=== PATIENT | female | born 1960 | race Caucasian/White ===

== ENCOUNTER → 2017-02-15 | Outpatient (CLI) | payer BC ==
--- NOTE | 2017-02-15 19:10 | Diagnostic Imaging Report ---
EXAMINATION: Bilateral screening mammogram. INDICATION: Screening. COMPARISON: This study was compared to the prior exams of 09/15/2014 and 03/14/2012. At this time, there are no current complaints. The current study was also evaluated with a Computer Aided Detection (CAD) system. FINDINGS: There are scattered fibroglandular densities in both breasts which could obscure a lesion. Overall, there does not appear to have been any significant change when compared to the prior exam. No primary or secondary sign of malignancy is noted. IMPRESSION: 1. There is no evidence of malignancy. 2. The patient should have her annual bilateral screening mammogram on schedule in February of 2018. ACR BI-RADS Category 1: Negative. Result letter will be mailed to the patient. Note: At least 10% of breast cancer is not imaged by mammography. Dictated by: Dictated on workstation # [id number]
== END ==
LOC: RAD 15:19
PROVIDERS: ATTEND Obstetrics & Gynecology
DX: Z12.31 Encounter for screening mammogram for malignant neoplasm of breast (principal)
CPT/HCPCS: 77067

== ENCOUNTER → 2018-02-19 | Outpatient (CLI) | payer BC ==
--- NOTE | 2018-02-19 11:33 | Diagnostic Imaging Report ---
INDICATION: Routine screening. COMPARISON: 02/15/2017 and 09/15/2014. TECHNIQUE: Screening digital mammography was performed bilaterally with a Computer Aided Detection (CAD) system. FINDINGS: Scattered fibroglandular densities are identified bilaterally. Intraparenchymal lymph nodes in the upper outer aspects of both breasts are noted and stable. No spiculated mass or malignant appearing microcalcifications are seen. The axillae are unremarkable. IMPRESSION: No mammographic features suspicious for malignancy are identified. ACR BI-RADS Category 2: Benign findings. Result letter will be mailed to the patient. Note: At least 10% of breast cancer is not imaged by mammography. Dictated by: Dictated on workstation # [id number]
--- NOTE | 2018-02-21 16:36 | HISTORY AND PHYSICAL ---
DATE OF SERVICE: COLONOSCOPY H AND P HISTORY OF PRESENT ILLNESS: The patient is a 58-year-old white female referred by Dr. Mireille Pinto for screening colonoscopy. She reports that she feels well. She is deemed to be of average risk as she is not aware of any family history for colon cancer. She has had no bowel habit change. Denies bright red blood per rectum or melena. She currently is taking no prescription medication. Reports no weight change that she is aware of. 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 PAST SURGICAL HISTORY: Noncontributory. PHYSICAL EXAMINATION: GENERAL: Reveals a well-appearing white female in no acute distress. VITAL SIGNS: Her blood pressure was 110/80, weight is 156.6 pounds and stable, heart rate 72 and regular. NECK: Revealed no JVD, adenopathy or bruits. Ear canals are clear with normal TMs. CHEST: Clear to auscultation. CARDIOVASCULAR: Regular rate and rhythm without murmur, S3 or S4. ABDOMEN: Soft, supple without mass, organomegaly or tenderness. Bowel sounds are positive in all four quadrants. No bruits are noted. EXTREMITIES: Reveal no cyanosis, clubbing or edema. ASSESSMENT: The patient was set up for screening colonoscopy on 03/17. Prep instructions with the Suprep kit were given and questions were answered. Job ID: [id number] DocumentID: [id number] Dictated Date: 02/21/2018 16:21:10 Vamp Creaser Date: 02/21/2018 16:35:39 Dictated By: OZZY JAVIER MD
== END ==
LOC: RAD 10:29
PROVIDERS: ATTEND Obstetrics & Gynecology
DX: Z12.31 Encounter for screening mammogram for malignant neoplasm of breast (principal)
CPT/HCPCS: 77067

== ENCOUNTER 2018-03-12 08:45 | Outpatient (CLI) | payer BC ==
[~2018-03-12] VITALS: Ht 162.6 cm; Wt 70.3 kg
== END 2018-03-12 09:04 ==
LOC: PREOP 08:45
PROVIDERS: ATTEND Internal Medicine
DX: Z01.818 Encounter for other preprocedural examination (principal); Z12.11 Encounter for screening for malignant neoplasm of colon

== ENCOUNTER 2018-03-16 07:00 | Day surgery (SDC) | payer BC ==
[~2018-03-16] VITALS: Ht 162.6 cm; Wt 70.3 kg
[2018-03-16] MEDS ORDERED: D5 LR IV SOLUTION 1,000 ML IV ONE (07:04)
[2018-03-16] MEDS ORDERED: D5 LR IV SOLUTION 1,000 ML IV STA (07:28)
[2018-03-16] MEDS ORDERED: LIDOCAINE JELLY 2% (XYLOCAINE) 5 ML TUBE MM PRN (07:30)
[2018-03-16 07:32] VITALS: BP 134/86
--- NOTE | 2018-03-16 07:37 | Pre-Op Note & Conscious Sedat ---
Pre-Operative Progress Note H&P Reviewed The H&P was reviewed, patient examined and no changes noted. Date H&P Reviewed: March 16, 2018 Time H&P Reviewed: 07:37 Conscious Sedation Pre-Proced ASA Class: 1 Airway Mallampati Classification: ([place] appropriate class) I. II. III, IV Lungs Heart ASA score ASA 1: a normal healthy patient ASA 2: a patient with a mild systemic disease (mid diabetes, controlled hypertension, obesity ASA 3: a patient with a severe systemic disease that limits activity (angina , COPD, prior Myocardial infarction) ASA 4: a patient with an incapacitating disease that is a constant threat to life (CHF, renal failure) ASA 5: a moribund patient not expected to survive 24 hrs. (ruptured aneurysm) ASA 6: a declared brain patient whose organs are being harvested. For emergent operations, add the letter E after the classification Grade 2 Sedation Plan: Analgesia, Amnesia, Plan communicated to team members, Discussed options with patient/fam, Discussed risks with patient/fam Note The patient is an appropriate candidate to undergo the planned procedure, sedation, and anesthesia. The patient immediately re-assessed prior to indication. OZZY JAVIER MD March 16, 2018 07:37
[2018-03-16] MEDS ORDERED: MIDAZOLAM 2 MG/2 ML (VERSED) VIAL ONE ×2 (07:38→08:02)
[2018-03-16] MEDS ORDERED: LIDOCAINE JELLY 2% (XYLOCAINE) 5 ML TUBE ONE (07:38)
[2018-03-16] MEDS ORDERED: fentaNYL INJECTION 100 MCG/2 ML AMP ONE (07:38)
[2018-03-16] MEDS: fentaNYL INJECTION 100 MCG/2 ML AMP IVP PRN ×2 (07:55→08:10)
[2018-03-16] MEDS: MIDAZOLAM 2 MG/2 ML (VERSED) VIAL IVP PRN ×2 (08:00→08:16)
[2018-03-16 08:40] VITALS: BP 108/60
[2018-03-16 09:10] VITALS: BP 122/81
[2018-03-16 09:15] VITALS: BP 122/81
--- NOTE | 2018-03-17 02:33 | OPERATIVE REPORT ---
DATE OF SERVICE: COLONOSCOPY SUMMARY INDICATION FOR PROCEDURE: Screening colonoscopy. The patient was placed in the left lateral decubitus position. Prior to undergoing colonoscopy, digital rectal evaluation was performed. Anal sphincter tone was normal and the perianal reflexes intact. No abnormalities were noted on digital inspection of anal canal or distal rectal vault. The colonoscope was then inserted into the rectum and under direct visualization advanced to the cecum. The cecum was identified by identification of the ileocecal valve and cecal strap. Photographic documentation was obtained. Careful inspection was made as the colonoscope was withdrawn. The patient tolerated the procedure well. FINDINGS: There was no evidence for internal or external hemorrhoids and the rectum was unremarkable. Several small sigmoid diverticula were present without evidence for diverticulitis. The descending colon as well as the splenic flexure were unremarkable. Present in the proximal transverse colon was a diminutive 3 to 4 mm sessile polyp that was photographed and biopsied and ablated, submitted for histopathology with no significant blood loss. The hepatic flexure, ascending colon, and cecum were unremarkable. ASSESSMENT: One diminutive proximal transverse colonic polyp was noted, subsequently biopsied and ablated via hot forceps. As long as there are no surprises on histopathology report, we will abdicate screening colonoscopy in 10 years as the patient reports no family history for colon cancer. Mild diverticular disease confined to the sigmoid colon was present without evidence for diverticulitis. Job ID: [id number] DocumentID: [id number] Dictated Date: 03/16/2018 12:01:49 Outbound Sales Executive Date: 03/16/2018 20:12:58 Dictated By: OZZY JAVIER MD
--- NOTE | 2018-03-20 10:02 | HISTORY AND PHYSICAL ---
DATE OF SERVICE: 03/16/2018 COLONOSCOPY H AND P HISTORY OF PRESENT ILLNESS: The patient is a 58-year-old white female referred by Dr. Mireille Pinto for screening colonoscopy. She reports that she feels well. She is deemed to be of average risk as she is not aware of any family history for colon cancer. She has had no bowel habit change. Denies bright red blood per rectum or melena. She currently is taking no prescription medication. Reports no weight change that she is aware of. 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 PAST SURGICAL HISTORY: Noncontributory. PHYSICAL EXAMINATION: GENERAL: Reveals a well-appearing white female in no acute distress. VITAL SIGNS: Her blood pressure was 110/80, weight is 156.6 pounds and stable, heart rate 72 and regular. NECK: Revealed no JVD, adenopathy or bruits. Ear canals are clear with normal TMs. CHEST: Clear to auscultation. CARDIOVASCULAR: Regular rate and rhythm without murmur, S3 or S4. ABDOMEN: Soft, supple without mass, organomegaly or tenderness. Bowel sounds are positive in all four quadrants. No bruits are noted. EXTREMITIES: Reveal no cyanosis, clubbing or edema. ASSESSMENT: The patient was set up for screening colonoscopy on 03/17. Prep instructions with the Suprep kit were given and questions were answered. Job ID: [id number] DocumentID: [id number] Dictated Date: 02/21/2018 16:21:10 Graphics Artist Date: 02/21/2018 16:35:39 Dictated By: OZZY JAVIER MD <Dictated by OZZY JAVIER MD> <Electronically signed by OZZY JAVIER MD> 02/22/18 0818
== END 2018-03-16 09:15 | disposition home or self-care (01) ==
LOC: ENDO 07:00
PROVIDERS: ATTEND Internal Medicine
DX: Z12.11 Encounter for screening for malignant neoplasm of colon (principal); K63.5 Polyp of colon; K57.30 Diverticulosis of large intestine without perforation or abscess without bleeding
CPT/HCPCS: 88305

== ENCOUNTER → 2019-03-27 | Outpatient (CLI) | payer BC ==
--- NOTE | 2019-03-27 10:14 | Diagnostic Imaging Report ---
INDICATION: Routine screening. COMPARISON: 02/19/2018 and 02/15/2017. TECHNIQUE: 2D and 3D bilateral screening mammography was performed with CAD. FINDINGS: Scattered fibroglandular densities are identified bilaterally. Intraparenchymal lymph nodes in the upper outer aspects of both breasts are again noted. There is a density in the central right breast on the CC view slightly lateral to the nipple line. This most likely represents summation but additional views are recommended. No corresponding density on the MLO view is seen. The left breast is unremarkable. There are benign calcifications. The axillae are unremarkable. IMPRESSION: Right breast density. Additional views including spot compression and roll CC views are recommended for further evaluation. ACR BI-RADS Category 0: Incomplete. (Needs additional imaging evaluation). Result letter will be mailed to the patient. Note: At least 10% of breast cancer is not imaged by mammography. Dictated by: Dictated on workstation # [id number]
== END ==
LOC: RAD 07:43
PROVIDERS: ATTEND Obstetrics & Gynecology
DX: Z12.31 Encounter for screening mammogram for malignant neoplasm of breast (principal); R92.8 Other abnormal and inconclusive findings on diagnostic imaging of breast
CPT/HCPCS: 77067

== ENCOUNTER → 2019-04-01 | Outpatient (CLI) | payer BC ==
--- NOTE | 2019-04-01 13:48 | Diagnostic Imaging Report ---
Indication: Right breast density. Patient presents for additional views. Correlation is made with recent screening study from 03/27/2019. Unilateral right 2-D and 3-D diagnostic mammography was performed with CAD. This included rolled CC, spot compression CC and 90 degree lateral view. Additional views failed to demonstrate discrete mass. Area of density noted on recent screening study most likely represents superimposed tissue. No mass or suspicious calculations are seen. Impression: BI-RADS category 1 Additional views fail to demonstrate a discrete mass. The patient may return to routine annual screening mammography. ACR BI-RADS Category 1: Negative. Result letter will be mailed to the patient. Note: At least 10% of breast cancer is not imaged by mammography. Dictated by: Dictated on workstation # [id number]
== END ==
LOC: RAD 13:22
PROVIDERS: ATTEND Obstetrics & Gynecology
DX: R92.2 Inconclusive mammogram (principal)

== ENCOUNTER → 2021-05-26 | Outpatient (CLI) | payer BC ==
--- NOTE | 2021-05-26 14:16 | Diagnostic Imaging Report ---
INDICATION: Routine screening. Comparison is made with prior mammogram from 03/27/2019 and 02/19/2018. 2-D and 3-D bilateral screening mammography was performed with CAD. Scattered fibroglandular densities are identified bilaterally. Intraparenchymal lymph nodes in the upper and outer aspects of both breasts appears stable. No new mass or malignant appearing microcalcifications are seen. Axillae are unremarkable. IMPRESSION: BI-RADS Category 2 No mammographic features suspicious for malignancy are identified. ACR BI-RADS Category 2: Benign findings. Result letter will be mailed to the patient. Note: At least 10% of breast cancer is not imaged by mammography. Dictated by: Dictated on workstation # [id number]
== END ==
LOC: RAD 10:00
PROVIDERS: ATTEND Obstetrics & Gynecology
DX: Z12.31 Encounter for screening mammogram for malignant neoplasm of breast (principal); Z01.419 Encounter for gynecological examination (general) (routine) without abnormal findings
CPT/HCPCS: 77063; 77067

== ENCOUNTER → 2022-05-27 | Outpatient (CLI) | payer BC ==
--- NOTE | 2022-05-27 13:25 | Diagnostic Imaging Report ---
Indication: Routine screening. Comparison is made with prior mammograms 05/26/2021 and 03/27/2019. 2-D and 3-D bilateral screening mammography was performed with CAD. Both breast are heterogeneously dense, limiting the sensitivity of mammography. The parenchymal pattern is stable. No dominant mass or malignant-appearing microcalcifications are seen. Axillae are unremarkable. IMPRESSION: BI-RADS Category 1 No mammographic features suspicious for malignancy are identified. ACR BI-RADS Category 1: Negative. Result letter will be mailed to the patient. Note: At least 10% of breast cancer is not imaged by mammography. Dictated by: Dictated on workstation # [id number]
== END ==
LOC: RAD 08:32
PROVIDERS: ATTEND Obstetrics & Gynecology
DX: Z12.31 Encounter for screening mammogram for malignant neoplasm of breast (principal)
CPT/HCPCS: 77063; 77067

== ENCOUNTER → 2023-06-13 | Outpatient (CLI) | payer BC ==
--- NOTE | 2023-06-13 15:41 | Diagnostic Imaging Report ---
INDICATION: Routine screening. COMPARISON: 05/27/2022 and 05/26/2021. TECHNIQUE: 2D and 3D bilateral screening mammography was performed with CAD. FINDINGS: Scattered fibroglandular densities are identified bilaterally. The parenchymal pattern is stable. No mass or malignant-appearing microcalcifications are seen. The axillae are unremarkable. IMPRESSION: No mammographic features suspicious for malignancy are identified. ACR BI-RADS Category 1: Negative. Result letter will be mailed to the patient. Note: At least 10% of breast cancer is not imaged by mammography. Dictated by: Dictated on workstation # [id number]
== END ==
LOC: RAD 10:15
PROVIDERS: ATTEND Nurse Practitioner Women's Health
DX: Z12.31 Encounter for screening mammogram for malignant neoplasm of breast (principal)
CPT/HCPCS: 77063; 77067